=== PATIENT | female | born 1950 | race Caucasian/White ===

== ENCOUNTER 2021-12-19 12:25 | Inpatient (IN) | payer MEDICARE ==
[~2021-12-19] VITALS: Ht 157.5 cm; Wt 82.2 kg
[2021-12-19] MEDS ORDERED: IV NS 0.9% 500 ML BAG IV ONE (12:30)
--- NOTE | 2021-12-19 12:40 | NUR ---
MOVE SHEET SUBMITTED.
--- NOTE | 2021-12-19 12:41 | NUR ---
Recived pt 71 yrs female waking in c/o dizzness for 3 days awake and alert no weekness
--- NOTE | 2021-12-19 12:50 | NUR ---
Seen by dr. lopez pt no weekness no pain
[2021-12-19 13:37] LABS: BASOPHILS % (AUTO) 0.5 % (0.0-2.0); EOSINOPHILS % (AUTO) 1.5 % (0.0-6.0); HEMATOCRIT 40 % (33-45); HEMOGLOBIN 13.2 g/dL (11.5-14.8); LYMPHOCYTES # (AUTO) 1.7 K/uL (0.8-4.8); LYMPHOCYTES % (AUTO) 36.4 % (20.0-44.0); MEAN CORPUSCULAR HGB CONC 33 g/dl (31.0-36.0); MEAN CORPUSCULAR VOLUME 95 fL (82-100); MONOCYTES # (AUTO) 0.4 K/uL (0.1-1.30); MONOCYTES % (AUTO) 9.6 % (2.0-12.0); NEUTROPHILS # (AUTO) 2.4 K/uL (1.8-8.9); PLATELET COUNT (AUTO) 241 K/uL (150-450); RED BLOOD CELL COUNT(AUTO) 4.19 MIL/uL (4.0-5.2); WHITE BLOOD COUNT (AUTO) 4.7 K/uL (4.3-11.0)
--- NOTE | 2021-12-19 14:15 | NUR ---
NO WEEKNESS RESTING AT THIS TIME ON SON
[2021-12-19 14:49] LABS: CALCIUM, SERUM 8.7 mg/dL (8.5-10.1); CARBON DIOXIDE 24 mmol/L (21-32); CHLORIDE 108 mmol/L (98-107); CREATININE 0.9 mg/dL (0.6-1.3); GLUCOSE 77 mg/dL (74-106); POTASSIUM 3.8 mmol/L (3.5-5.1); SODIUM SERUM 141 mmol/L (136-145); UREA NITROGEN, BLOOD 14 mg/dL (7-18)
[2021-12-19 14:54] LABS: ALANINE AMINOTRANSFERASE 23 U/L (12-78); ALBUMIN 3.4 g/dL (3.4-5.0); ALKALINE PHOSPHATASE 68 U/L (46-116); ASPARTATE AMINOTRANSFERASE 18 U/L (15-37); BILIRUBIN,DIRECT 0.2 mg/dL (0.0-0.2); BILIRUBIN,TOTAL 0.9 mg/dL (0.2-1.0); TOTAL PROTEIN, SERUM 6.8 g/dL (6.4-8.2)
--- NOTE | 2021-12-19 15:08 | NUR ---
BACK FROM CT SCAN OF HEAD
[2021-12-19] MEDS ORDERED: ASPIRIN 81 MG TAB.CHEW PO ONE (15:30)
[2021-12-19] MEDS ORDERED: ASPIRIN 325 MG TABLET ONE (15:51)
--- NOTE | 2021-12-19 16:08 | NUR ---
wesley garrison sent to lab
--- NOTE | 2021-12-19 17:17 | NUR ---
ROOM GIVEN 325-1
--- NOTE | 2021-12-19 17:32 | NUR ---
DINNER OBTEND EAT WILL 100% NO NUSEA OR VOMITING AT THIS TIME NO WEEKNESS WATING FOR TELMETER
--- NOTE | 2021-12-19 17:42 | NUR ---
Hand off to TERRIE . Paras RN 325-1 STABLE VS AND CONDTION NO PAIN NO WEEKESS TOLORATED PO INTACK NO N/V
[2021-12-19] MEDS ORDERED: ACETAMINOPHEN 325 MG TABLET PO PRN (18:00)
[2021-12-19] MEDS ORDERED: IV NS 0.9% 1,000 ML IV PRN (18:00)
[2021-12-19] MEDS ORDERED: Z GUARD REMEDY 4 OZ OINT TP PRN (18:00)
[2021-12-19] MEDS ORDERED: ONDANSETRON HCL/PF 4 MG/2 ML VIAL IVP PRN (18:00)
[2021-12-19] MEDS: ENOXAPARIN SODIUM 40 MG/0.4 ML DISP.SYRIN SQ SCH (18:59)
--- NOTE | 2021-12-19 19:30 | NUR ---
RN NOTES RECEIVED PATIENT AWAKE ON BED, A/OX4, AMBULATORY SR WITH 1ST DEGREE AV BLOCKON TELE MONITOR HR95, DENIES PAIN, FAMILY AT BEDSIDE, CALL LIGHT WITHIN REACH,. [id number], WILL CONTINUE TO MONITOR
--- NOTE | 2021-12-19 19:40 | NUR ---
ADMITTING/CLOSING RN NOTES ADMITTED A 71 Y/O FEMALE TO UNIT AT 1815 VIA GURNEY ACCOMPANIED BY Adithya PA WITH DX CHEST PAIN SECONDARY TO BENIGN PAROXYSMAL POSITIONAL VERTIGO. PT ALERT AND ORIENTED X4. ABLE TO MAKE NEEDS KNOWN. PT ORIENTED TO STAFF AND UNIT. V/S TAKEN AND RECORDED. PT ON ROOM AIR, TOLERATING WELL. BREATHING EVEN AND UNLABORED. LUNGS CLEAR BILATERALLY ON AUSCULTATION. PT PLACED ON CARDIAC TELE MONITOR, WITH CURRENT READING OF NORMAL SINUS RHYTHM, HR 66. NO COMPLAINT OF CARDIAC DISCOMFORT OR DISTRESS VOICED AT THIS TIME. ABDOMEN SOFT, NON-TENDER, AND NON DISTENDED. BOWEL SOUNDS PRESENT IN ALL FOUR QUADRANTS. SKIN IS INTACT, DRY AND WARM. NO SKIN IMPAIRMENT NOTED. IV ACCESS IN R HAND G #22 SALINE LOCK, INTACT AND PATENT. SAFETY MEASURES IN PLACE: BED IN LOWEST AND LOCKED POSITION, SIDE RAILS UPX2, CALL LIGHT WITHIN REACH. ENDORSED [facility] SHIFT NURSE FOR CONTINUITY OF CARE.
[2021-12-19 20:00] VITALS: BP 136/75
[2021-12-19] MEDS: MECLIZINE HCL 25 MG TABLET PO SCH (21:08)
[2021-12-19] MEDS ORDERED: MELATONIN 5 MG PO PRN (22:00)
[2021-12-19] MEDS ORDERED: HOME MED MISCELLANEOUS XX SCH (22:00)
[2021-12-20 04:00] VITALS: BP 132/75
[2021-12-20] MEDS: MECLIZINE HCL 25 MG TABLET PO SCH ×3 (05:00→12:21)
--- NOTE | 2021-12-20 06:27 | NUR ---
RN NOTES AWAKE, DENIES PAIN BUT STILL FEEL A LITTLE BIT DIZZY, DENIES CHEST PAIN, NO SOB, CALL LIGHT WITHIN REACH, [id number], PT. NEEDS ATTENDED
[2021-12-20 07:16] LABS: BASOPHILS % (AUTO) 0.6 % (0.0-2.0); HEMATOCRIT 37 % (33-45); HEMOGLOBIN 12.6 g/dL (11.5-14.8); LYMPHOCYTES # (AUTO) 1.7 K/uL (0.8-4.8); LYMPHOCYTES % (AUTO) 45.2 % (20.0-44.0); MEAN CORPUSCULAR HGB CONC 34 g/dl (31.0-36.0); MEAN CORPUSCULAR VOLUME 93 fL (82-100); MONOCYTES # (AUTO) 0.3 K/uL (0.1-1.30); MONOCYTES % (AUTO) 8.8 % (2.0-12.0); NEUTROPHILS # (AUTO) 1.7 K/uL (1.8-8.9); NEUTROPHILS % (AUTO) 43.4 % (43.0-81.0); PLATELET COUNT (AUTO) 227 K/uL (150-450); RED BLOOD CELL COUNT(AUTO) 3.93 MIL/uL (4.0-5.2); WHITE BLOOD COUNT (AUTO) 3.8 K/uL (4.3-11.0)
[2021-12-20 07:27] LABS: CALCIUM, SERUM 8.4 mg/dL (8.5-10.1); CREATININE 0.8 mg/dL (0.6-1.3); PHOSPHORUS 3.8 mg/dL (2.5-4.9); POTASSIUM 3.7 mmol/L (3.5-5.1)
[2021-12-20] MEDS ORDERED: PANTOPRAZOLE 40 MG TABLET.DR PO SCH (07:30)
--- NOTE | 2021-12-20 07:34 | NUR ---
SCHOOL DIRECTOR NOTES RECEIVED PATIENT AWAKE IN BED. NO PAIN NOTED. NO SOB NOTED. NO DISTRESS NOTED. ABLE TO MAKE NEEDS KNOWN. AMBULATORY. ASSIST HER TO THE BATHROOM. COMPLAINS OF LITTLE DIZZINESS. IV SITE ON THE RIGHT HAND G # 22 INTACT. RUNNING NS AT 75 ML/HR. ALL SAFETY MEASURES IN PLACE. BED LOCKED IN THE LOWEST POSITION. CALL LIGHT AND TABLE IN EASY REACH. WILL CONTINUE TO MONITOR THE PATIENT.
[2021-12-20 07:48] LABS: ALBUMIN 3.1 g/dL (3.4-5.0); BILIRUBIN,TOTAL 1.3 mg/dL (0.2-1.0); TOTAL PROTEIN, SERUM 6.3 g/dL (6.4-8.2)
[2021-12-20 08:00] VITALS: BP 139/76
[2021-12-20 08:00] LABS: THYROID STIMULATING HORMONE 3.992 uIU/mL (0.358-3.74)
[2021-12-20] MEDS ORDERED: ASPIRIN EC 81 MG TABLET.DR PO SCH (09:00)
[2021-12-20 12:00] VITALS: BP 129/73
[2021-12-20 16:00] VITALS: BP 128/78
[2021-12-20] MEDS: ENOXAPARIN SODIUM 40 MG/0.4 ML DISP.SYRIN SQ SCH (17:04)
[2021-12-20] MEDS ORDERED: ATOR20TA PO (17:23)
[2021-12-20] MEDS ORDERED: MECL-159 PO (17:23)
[2021-12-20] MEDS ORDERED: ASPI-1420 PO (17:23)
--- NOTE | 2021-12-20 19:40 | NUR ---
EDGER TAILER NOTES DISCHARGE PATIENT IN STABLE CONDITION. NO PAIN NOTED. NO SOB NOTED. ALL DUE MEDS GIVEN ORDERED. IV SITE REMOVED COVERED WITH DRY DRESSING. NO BLEEDING NOTED. BAND SAW MARKER REMOVED.ALL THE BELONGINGS ACCOUNTED AND SIGNED FOR. ALL THE DISCHARGE INSTRUCTIONS GIVEN TO THE PATIENT. SEX THERAPIST WHEELED THE PATIENT TO THE LOBBY. PATIENT LEFT HOSPITAL IN STABLE CONDITION AT 1940. MD AND CHARGE NURSE AWARE OF THE DISCHARGE.
[2021-12-20 21:44] LABS: BILIRUBIN,URINE NEGATIVE (NEGATIVE); COLOR,URINE YELLOW (YELLOW); LEUKOCYTE ESTERASE ,URINE NEGATIVE (NEGATIVE); NITRITE, URINE NEGATIVE (NEGATIVE); PH,URINE 5.5 (5.0-8.0); PROTEIN,URINE NEGATIVE (NEGATIVE); UGLUCOSE NEGATIVE (NEGATIVE); UROBILINOGEN,URINE 0.2 EU/dL (0.2)
== END 2021-12-20 19:40 | disposition home or self-care (01) | DRG 206 ==
LOC: ER 12:30 → TELE 17:42
PROVIDERS: ADMIT Nurse Practitioner Acute Care; ATTEND Nurse Practitioner Acute Care
DX: M94.0 Chondrocostal junction syndrome [Tietze] (principal); D68.59 Other primary thrombophilia; D68.2 Hereditary deficiency of other clotting factors; N32.1 Vesicointestinal fistula; H81.10 Benign paroxysmal vertigo, unspecified ear; Z87.19 Personal history of other diseases of the digestive system; Z90.49 Acquired absence of other specified parts of digestive tract; Z90.710 Acquired absence of both cervix and uterus; Z87.891 Personal history of nicotine dependence; E78.5 Hyperlipidemia, unspecified; R29.700 NIHSS score 0
CPT/HCPCS: 36415; 70450-TC; 71045-TC; 80048-TC; 80053-TC; 80061-TC; 80076-TC; 82962-TC; 83540-TC; 83735-TC; 83880; 84100-TC; 84443-TC; 84484-TC; 85025-TC; 87081-TC; 93307-TC; C9803; G0378; J1650; J7030; J8597